=== PATIENT | female | born 1995 | race African-American/Black ===

== ENCOUNTER 2016-08-04 20:37 | Emergency (ER) | payer MEDICAID ==
[~2016-08-04 20:37] MED LIST: COLACE100 M1 PO; COLACE100 MG PO; IBUPROFEN800 M1 PO; INTEGRA F CAPS1 EAC1; MOTRIN800 MG PO; NO HOME MEDICATION XX; PRENATAL TABLE1 EAC3; PRENATAL1 EACH PO; TRIPNIP TOP; TUMS500 M1 PO
== END 2016-08-05 00:12 ==
LOC: EDMED 20:37
PROC: 3E0T3BZ Introduction of Anesthetic Agent into Peripheral Nerves and Plexi, Percutaneous Approach (ICD-10-PCS; principal; 2016-08-05)
DX: S61.307A Unspecified open wound of left little finger with damage to nail, initial encounter (principal); W23.0XXA Caught, crushed, jammed, or pinched between moving objects, initial encounter; Y92.009 Unspecified place in unspecified non-institutional (private) residence as the place of occurrence of the external cause